=== PATIENT | male | born 1955 | race Caucasian/White ===

== ENCOUNTER 2017-11-14 08:08 | Day surgery (SDC) | payer OTHER ==
[2017-11-13 11:19] VITALS: BMI 26.3
[2017-11-14] MEDS ORDERED: BUPIVACAINE HCL/PF 2.5 MG/ML - 30 ML VIAL IJ ONE ×2 (09:46→09:51)
[2017-11-14] MEDS ORDERED: MIDAZOLAM HCL 2 MG/2 ML SINGLE DOSE VIAL ONE (10:25)
[2017-11-14] MEDS ORDERED: PROPOFOL 20 ML ONE (10:34)
[2017-11-14] MEDS ORDERED: LIDOCAINE HCL/PF 2% SDV 5ML VIAL ONE (10:38)
[2017-11-14] MEDS ORDERED: DEXAMETHASONE SOD PHOSPHATE 4 MG/1 ML VIAL ONE (10:38)
[2017-11-14] MEDS ORDERED: ONDANSETRON 4 MG/2 ML VIAL ONE (10:38)
[2017-11-14 11:19] VITALS: TEMP 97.6
[2017-11-14] MEDS ORDERED: oxyCODONE HCL 5 MG TABLET PO PRN ×2 (11:24)
[2017-11-14] MEDS ORDERED: ACETAMINOPHEN 325 MG TABLET (FP) PO PRN (11:24)
[2017-11-14] MEDS ORDERED: ONDANSETRON 4 MG/2 ML VIAL IVPUSH PRN (11:24)
[2017-11-14] MEDS ORDERED: LACTATED RINGERS SOLUTION 1,000 ML IV SCH (11:30)
[2017-11-14 13:40] VITALS: BP 146/76; PULSE 60
--- NOTE | 2017-11-14 21:37 | OP ---
DATE OF OPERATION: 11/14/2017 PREOPERATIVE DIAGNOSIS: Right forearm mass. POSTOPERATIVE DIAGNOSIS: Right forearm mass. OPERATION: Right forearm mass excision. SURGEON: Surendra Martin MD ANESTHESIA: General. COMPLICATIONS: None. ESTIMATED BLOOD LOSS: Minimal. INDICATIONS FOR PROCEDURE: The patient is a 62-year-old male with the above findings indicated for operative treatment. The risks, benefits, and alternatives were discussed with the patient at length. Proper informed consent was obtained. PROCEDURE: After proper identification of the patient and the correct operative site, the patient was brought to the operating room and placed supine on the table. All pressure points were well padded. General anesthesia was provided by the anesthesiologist. The right upper extremity was prepped and draped in the usual sterile fashion. A well-padded tourniquet was placed over the sterile prep. Esmarch bandage was used to exsanguinate the right upper extremity. Tourniquet was inflated to 250 mmHg. A longitudinal incision was made over the mass in the forearm. Incision was taken sharply through the skin with blunt and sharp dissection of the subcutaneous tissue. The mass was found to be a gelatinous, fairly well circumscribed structure, superficial to the muscular fascia. It was excised in hole and sent for pathologic evaluation. It measured approximately 3 cm x 2 cm x 2 cm. No further masses were noted. Wound was irrigated and repaired with 4-0 Vicryl and 4-0 Monocryl sutures. Steri-Strips and sterile dressings were placed. The patient was reversed from anesthesia and brought to the recovery room in stable condition. He tolerated the procedure well. SURENDRA MARTIN M.D. [place]/[id number]
--- NOTE | 2017-11-16 17:47 | PATH ---
Surgical Pathology Report Patient Name: EMILY JUNIOR [facility]. Rec. #: [id number] /Age/Gender: 1955 (Age: 62) / M Account: [id number] Location: [facility] AMBULATORY Taken: 11/14/2017 Received: 11/14/2017 Reported: 11/16/2017 Physicians: Surendra Menjivar M.D. 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 COMMENT: The lesion is composed of spindle cells, fat cells, and thick eosinophilic collagen fibers. The spindle cells are positive for CD34, Vimentin, focally weakly positive for S100. The fat cells react with S100. 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 Immunostains CD34 and Vimentin (block1) were performed at [place], [place] ([id number]) and interpreted at [facility]. S100 (block2) was performed and interpreted at [facility]. Positive and negative controls (internal if applicable) show appropriate results. Electronically Signed Anais Cruz M.D. Gross Description Received in formalin, labeled "right forearm mass" is a 3.5 x 2.6 x 2.7 cm glistening white gelatinous mass. The specimen is inked black. Sectioning reveals mucoid gelatinous cut surface. No areas of hemorrhage or necrosis identified. Maintenance [employer] sections are submitted in three cassettes. AE/11/14/2017 ebram/11/14/2017
== END 2017-11-14 12:40 | disposition home or self-care (01) ==
LOC: FASU 08:08
PROVIDERS: ATTEND Orthopaedic Surgery Hand Surgery
PROC: 0JBG0ZZ Excision of Right Lower Arm Subcutaneous Tissue and Fascia, Open Approach (ICD-10-PCS; principal; 2017-11-14 10:46)
DX: D21.11 Benign neoplasm of connective and other soft tissue of right upper limb, including shoulder (principal)
CPT/HCPCS: 88304-TC; 88342-TC; 94760